=== PATIENT | male | born 1940 | race Caucasian/White ===

== ENCOUNTER → 2017-04-12 | Outpatient (CLI) | payer OTHER | LOC: FIMAGING 07:47 | PROVIDERS: ATTEND Internal Medicine Pulmonary Disease | DX: J40 Bronchitis, not specified as acute or chronic (principal); I25.10 Atherosclerotic heart disease of native coronary artery without angina pectoris ==

== ENCOUNTER → 2017-12-07 | Outpatient (CLI) | payer OTHER | LOC: BMCIMAGING 15:37 | PROVIDERS: ATTEND Internal Medicine | DX: J40 Bronchitis, not specified as acute or chronic (principal); M51.34 Other intervertebral disc degeneration, thoracic region; M19.012 Primary osteoarthritis, left shoulder; M19.011 Primary osteoarthritis, right shoulder ==

== ENCOUNTER 2018-06-08 17:47 | Emergency (ER) | payer OTHER ==
--- NOTE | 2018-06-08 18:16 | EDPHY ---
H & P Time Seen by Provider: 06/08/18 18:00 HPI/ROS: CHIEF COMPLAINT: Word-finding difficulties HISTORY OF PRESENT ILLNESS: Patient is a 78-year-old male with a history of atrial fibrillation high cholesterol who presents emergency department with word -finding difficulties. Patient states he felt well today. He went on a hike. He returned home was working on his daughter's will. She returned home from work at approximately 4:20. She found the patient to have difficulty finding words. Patient was without weakness or numbness. No headache. No neck pain. No visual change. While in route to the emergency department patient's symptoms resolved. He has no complaints at this time. Patient states he has occasional AFib and he is not on anticoagulation. He takes aspirin daily. REVIEW OF SYSTEMS: My complete review of systems is negative except as mentioned in the HPI. Past Medical/Surgical History: Includes atrial fibrillation, hypercholesterolemia. The triage note states the patient has hypertension however he denies this. Smoking Status: Never smoked Physical Exam: Vitals noted GENERAL: Well-appearing, in no acute distress, alert. HEENT: Eyes normal to inspection, normal pharynx, no signs of dehydration. NECK: No thyromegaly, no lymphadenopathy, supple. RESPIRATORY: Clear to auscultation bilaterally, no rales, rhonchi or wheezing. CVS: Regular rate and rhythm, no rubs, murmurs, or gallops. ABDOMEN: Soft, nontender, nondistended, no organomegaly. BACK: Normal to inspection, no CVA tenderness. SKIN: Normal color, no rash, warm, dry. No pallor. EXTREMITIES: No pedal edema, no calf tenderness, no Homans sign or cords, no joint swelling. NEURO/PSYCH: Higher functions: Alert and Oriented x3. Normal speech and cognition. Normal mood and affect. Cranial nerves: Normal as tested. Cerebellar: Normal as tested. Good finger to nose, good [id number], normal gait. Peripheral exam: Normal motor exam. Normal sensation. Normal reflexes. Constitutional: Initial Vital Signs Temperature (C) 36.0 C 06/08/18 17:50 Heart Rate 57 L 06/08/18 17:50 Respiratory Rate 16 06/08/18 17:50 Blood Pressure 143/75 H 06/08/18 17:50 O2 Sat (%) 98 06/08/18 17:50 O2 Delivery Mode Room Air Allergies/Adverse Reactions: No Known Allergies Allergy (Unverified 11/06/13 14:30) Home Medications: Medication Instructions Recorded Ascorbic Acid [Vitamin C 500 mg 500 mg PO DAILY 06/08/18 (*)] Atorvastatin Calcium [Lipitor 20 20 mg PO DAILY 06/08/18 mg (*)] Famotidine [Pepcid 20 MG (*)] 20 mg PO BID 06/08/18 Glucosamine/Chondroitin 1 each PO DAILY 06/08/18 [Glucosamine/Chondroitin (*)] Herbals/Supplements -Info Only 1 ea PO DAILY 06/08/18 Metoprolol Tartrate [Lopressor 25 12.5 mg PO BID 06/08/18 mg (*)] [place]-3 Fatty Acids [Fish Oil 1000 1,000 mg PO DAILY 06/08/18 mg (*)] Propylene Glycol [Systane Balance] 1 drop OP HS PRN 06/08/18 Ubidecarenone [Coenzyme Q10] 30 mg PO DAILY 06/08/18 Medical Decision Making ED Course/Re-evaluation: In the emergency department I met the patient on arrival. I took report from the patient and his family. An IV was placed. Laboratory studies, head CT and EKG were ordered. The patient was not a stroke activation. He had a normal neuro exam. NIHSS = 0 EKG shows normal sinus rhythm, normal rate, normal axis, normal intervals. Atrial premature complex. Poor R-wave progression. There are no ST or T-wave abnormalities. I discussed the case with Dr. Ramana gallegos from the hospitalist service. Patient will be admitted for further evaluation and care. I discussed the plan with the patient. Head CT: Please refer the dictated report. No acute disease noted. The patient does not want to be admitted. He refused admission. He did have capacity to make this decision. I discussed the reasons for admission. I discussed pros and cons. He was given aspirin prior to discharge. He will return with worsening symptoms. He understands the importance of immediate evaluation if he has stroke-like symptoms. These were reviewed. He was given warnings prior to leaving. Differential Diagnosis: My differential includes but is not limited to ischemic CVA, hemorrhagic CVA, dissection, aneurysm, electrolyte abnormality, sugar abnormality, bacteremia, sepsis, ACS, acute WA, TIA - Data Points Laboratory Results: Laboratory Results 06/08/18 18:20 06/08/18 18:20 06/08/18 06/08/18 06/08/18 18:29 18:20 18:20 WBC 7.25 10^3/uL 10^3/uL (3.80-9.50) RBC 4.36 10^6/uL L 10^6/uL (4.40-6.38) Hgb 14.4 g/dL g/dL (13.7-17.5) Hct 40.4 % % (40.0-51.0) MCV 92.7 fL fL (81.5-99.8) MCH 33.0 pg pg (27.9-34.1) MCHC 35.6 g/dL g/dL (32.4-36.7) RDW 11.7 % % (11.5-15.2) Plt Count 318 10^3/uL 10^3/uL (150-400) MPV 9.3 fL fL (8.7-11.7) Neut % (Auto) 64.0 % % (39.3-74.2) Lymph % (Auto) 21.1 % % (15.0-45.0) [place] % (Auto) 11.3 % % (4.5-13.0) Eos % (Auto) 2.9 % % (0.6-7.6) Baso % (Auto) 0.6 % % (0.3-1.7) Nucleat RBC Rel Count 0.0 % % (0.0-0.2) Absolute Neuts (auto) 4.64 10^3/uL 10^3/uL (1.70-6.50) Absolute Lymphs (auto) 1.53 10^3/uL 10^3/uL (1.00-3.00) Absolute Monos (auto) 0.82 10^3/uL H 10^3/uL (0.30-0.80) Absolute Eos (auto) 0.21 10^3/uL 10^3/uL (0.03-0.40) Absolute Basos (auto) 0.04 10^3/uL 10^3/uL (0.02-0.10) Absolute Nucleated RBC 0.00 10^3/uL 10^3/uL (0-0.01) Immature Gran % 0.1 % % (0.0-1.1) Immature Gran # 0.01 10^3/uL 10^3/uL (0.00-0.10) Sodium 133 mEq/L L mEq/L (135-145) Potassium 4.1 mEq/L mEq/L (3.3-5.0) Chloride 99 mEq/L mEq/L (97-110) Carbon Dioxide 22 mEq/l mEq/l (22-31) Anion Gap 12 mEq/L mEq/L (8-16) BUN 25 mg/dL H mg/dL (7-23) Creatinine 0.8 mg/dL mg/dL (0.7-1.3) Estimated GFR > 60 Glucose 93 mg/dL mg/dL (70-100) Calcium 9.2 mg/dL mg/dL (8.5-10.4) POC Troponin I 0.00 ng/mL ng/mL (0.00-0.08) Point of Care Test Results: Chemistry 06/08/18 18:29 POC Troponin I 0.00 ng/mL ng/mL (0.00-0.08) Departure - Departure Disposition: Home, Routine, Self-Care Clinical Impression: TIA (transient ischemic attack) Condition: Good
[2018-06-08 18:38] LABS: PLATELET COUNT 318 10^3/uL (150-400)
[2018-06-08 19:49] VITALS: BP 148/84
[2018-06-08] MEDS ORDERED: ASPIRIN 325 MG TAB PO ONE (19:51)
--- NOTE | 2018-06-14 21:08 | CPEKG ---
Test Reason : OPEN Blood Pressure : / mmHG Vent. Rate : 053 BPM Atrial Rate : 054 BPM P-R Int : 174 ms QRS Dur : 094 ms QT Int : 451 ms P-R-T Axes : 055 019 047 degrees QTc Int : 424 ms Sinus rhythm Atrial premature complex Abnormal R-wave progression, early transition Confirmed by Dedrick Roth ([id number]) on 06/14/2018 9:08:04 PM Referred By: Confirmed By:Dedrick Roth
== END 2018-06-08 20:01 | disposition home or self-care (01) ==
LOC: UNDOADMOB 18:45
DX: G45.9 Transient cerebral ischemic attack, unspecified (principal); I48.91 Unspecified atrial fibrillation; E78.00 Pure hypercholesterolemia, unspecified
CPT/HCPCS: 84484-PO

== ENCOUNTER → 2018-06-25 | Outpatient (CLI) | payer OTHER ==
[~2018-06-25] MED LIST: IOPAMIDOL (ISOVUE 370) 100 ML BTL IV ONE
== END ==
LOC: FIMAGING 08:06
PROVIDERS: ATTEND Psychiatry & Neurology Neurology
DX: G31.9 Degenerative disease of nervous system, unspecified (principal); R90.82 White matter disease, unspecified
CPT/HCPCS: 70496; 70498; 70551; Q9967